=== PATIENT | female | born 1980 | race African-American/Black ===

== ENCOUNTER 2023-12-31 09:43 | Emergency (ER) | payer OTHER ==
[2023-12-31] MEDS ORDERED: KETOROLAC 30 MG/ML INJ ONE (10:32)
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
[2023-12-31 12:02] VITALS: TEMP 97.6; O2SAT 100
[2023-12-31 12:03] VITALS: BP 111/67
== END 2023-12-31 11:57 | disposition home or self-care (01) ==
LOC: ER 09:43
DX: S16.1XXA Strain of muscle, fascia and tendon at neck level, initial encounter (principal); V79.50XA Passenger on bus injured in collision with unspecified motor vehicles in traffic accident, initial encounter
CPT/HCPCS: 72050